=== PATIENT | male | born 1940 | race Caucasian/White ===

== ENCOUNTER 2016-11-06 12:11 | Inpatient (IN) | payer MEDICARE, OTHER ==
[2016-11-06] MEDS ORDERED: Sodium Chloride 0.9% 1,000 ML IV ONE (12:56)
--- NOTE | 2016-11-06 14:30 | CR ---
EXAM DATE: 11/06/16 PATIENT'S AGE: 76 Patient: APARNA KRISHNAN Facility: [place], [place] Site . Site : 1940 Study: XRay Chest [id number] 1:34:23 PM Ordering Physician: Tremaine Obrien Final Report: HISTORY: Fluid on lungs. FINDINGS: PA and lateral chest radiographs are compared with 26 August 2016. Left subclavian transvenous pacer is in place in unchanged position. Right-sided Port -A-Cath is in place. The catheter is tortuous extending above the left clavicle with the tip in the SVC unchanged from prior exam. The cardiac silhouette is stable. There is a small left pleural effusion and a moderately large right pleural effusion increased from prior exam. There is persistent linear density seen in the left base and adjacent to the right pleural effusion. Degenerative changes are seen within the distal thoracic spine. IMPRESSION: 1. Increasing moderately large right pleural effusion and persistent adjacent atelectatic lung. 2. Stable small left pleural effusion and atelectatic lung. Dictated by Florecita Glez MD @ 11/06/2016 2:04:16 PM Dictated by: Florecita Gelz MD @ 11/06/2016 14:04:36 (Electronic Signature) Report Signed by Proxy. CUONG
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
[2016-11-06] MEDS ORDERED: Ondansetron 4 MG/2 ML SDV IVPUSH PRN (16:17)
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
[2016-11-06] MEDS ORDERED: Metoprolol Tartrate 25 MG Tab PO ONE (18:13)
[2016-11-06] MEDS: Metoprolol Tartrate 25 MG Tab PO SCH (21:03)
[2016-11-07] MEDS ORDERED: Sodium Chloride 0.9% 1,000 ML IV ONE (00:50)
[2016-11-07 05:47] LABS: CHLORIDE,CL 105 mmol/L (98-110); SODIUM,NA 138 mmol/L (136-146)
[2016-11-07] MEDS: Omeprazole 20 MG Cap.CR PO SCH (08:03)
[2016-11-07] MEDS: Metoprolol Tartrate 25 MG Tab PO SCH ×2 (08:25→21:46)
--- NOTE | 2016-11-07 17:17 | PCM.PN ---
Addendum entered and electronically signed by Saurabh Sprague MD 11/07/16 17:19: Original Note: - General Info Date of Service: 11/07/16 Admission Dx/Problem (Free Text): Admission Diagnosis/Problem Admission Diagnosis/Problem Hypoxia Subjective Update: Patient comfortable. Has no complaints or concerns. Functional Status: Reports: Pain Controlled - Review of Systems General: Reports: No Symptoms HEENT: Reports: No Symptoms Pulmonary: Reports: No Symptoms Cardiovascular: Reports: No Symptoms Gastrointestinal: Reports: No Symptoms Genitourinary: Reports: No Symptoms Musculoskeletal: Reports: No Symptoms Skin: Reports: No Symptoms Neurological: Reports: No Symptoms Psychiatric: Reports: No Symptoms - Patient Data Vitals - Most Recent: Last Vital Signs Temp 36.6 C 11/07/16 16:00 Pulse 85 11/07/16 16:00 Resp 22 H 11/07/16 16:00 BP 97/64 11/07/16 16:00 Pulse Ox 92 L 11/07/16 16:00 Weight - Most Recent: 61.235 kg I&O - Last 24 Hours: Intake & Output 11/07/16 11/07/16 11/07/16 06:59 14:59 22:59 Intake Total 1318 300 Output Total 300 270 Balance 1018 30 Lab Results Last 24 Hours: Laboratory Results - last 24 hr 11/07/16 11/07/16 11/07/16 Range/Units 01:00 05:10 05:10 WBC 2.99 L (4.0-11.0) K/uL RBC 3.11 L (4.50-5.90) M/uL Hgb 10.5 L (13.0-17.0) g/dL Hct 31.0 L (38.0-50.0) % MCV 99.7 H (80.0-98.0) fL MCH 33.8 H (27.0-32.0) pg MCHC 33.9 (31.0-37.0) g/dL RDW Std Deviation 54.5 (28.0-62.0) fl RDW Coeff of Amber 15 (11.0-15.0) % Plt Count 69 L (150-400) K/uL MPV 11.20 (7.40-12.00) fL Neut % (Auto) 43.1 L (48.0-80.0) % Lymph % (Auto) 41.8 H (16.0-40.0) % [place] % (Auto) 12.4 (0.0-15.0) % Eos % (Auto) 2.0 (0.0-7.0) % Baso % (Auto) 0.7 (0.0-1.5) % Neut # (Auto) 1.3 L (1.4-5.7) K/uL Lymph # (Auto) 1.3 (0.6-2.4) K/uL [place] # (Auto) 0.4 (0.0-0.8) K/uL Eos # (Auto) 0.1 (0.0-0.7) K/uL Baso # (Auto) 0.0 (0.0-0.1) K/uL Nucleated RBC % 0.0 /100WBC Nucleated RBCs # 0 K/uL INR 2.37 H (0.86-1.11) Lactate 1.2 (0.20-2.00) mmol/L Sodium (136-146) mmol/L Potassium (3.5-5.1) mmol/L Chloride (98-110) mmol/L Carbon Dioxide (21-31) mmol/L BUN (6.0-23.0) mg/dL Creatinine (0.6-1.5) mg/dL Est Cr Clr Drug Dosing mL/min Estimated GFR (MDRD) ml/min Glucose (60-110) mg/dL Calcium (8.8-10.8) mg/dL 11/07/16 Range/Units 05:10 WBC (4.0-11.0) K/uL RBC (4.50-5.90) M/uL Hgb (13.0-17.0) g/dL Hct (38.0-50.0) % MCV (80.0-98.0) fL MCH (27.0-32.0) pg MCHC (31.0-37.0) g/dL RDW Std Deviation (28.0-62.0) fl RDW Coeff of Amber (11.0-15.0) % Plt Count (150-400) K/uL MPV (7.40-12.00) fL Neut % (Auto) (48.0-80.0) % Lymph % (Auto) (16.0-40.0) % [place] % (Auto) (0.0-15.0) % Eos % (Auto) (0.0-7.0) % Baso % (Auto) (0.0-1.5) % Neut # (Auto) (1.4-5.7) K/uL Lymph # (Auto) (0.6-2.4) K/uL [place] # (Auto) (0.0-0.8) K/uL Eos # (Auto) (0.0-0.7) K/uL Baso # (Auto) (0.0-0.1) K/uL Nucleated RBC % /100WBC Nucleated RBCs # K/uL INR (0.86-1.11) Lactate (0.20-2.00) mmol/L Sodium 138 (136-146) mmol/L Potassium 4.2 (3.5-5.1) mmol/L Chloride 105 (98-110) mmol/L Carbon Dioxide 28 (21-31) mmol/L BUN 11 (6.0-23.0) mg/dL Creatinine 0.6 (0.6-1.5) mg/dL Est Cr Clr Drug Dosing 92.14 mL/min Estimated GFR (MDRD) > 60.0 ml/min Glucose 67 (60-110) mg/dL Calcium 7.6 L (8.8-10.8) mg/dL Med Orders - Current: Current Medications Metoprolol Tartrate (Lopressor) 25 mg PO Q12HR [facility] Last Admin: 11/07/16 08:25 Dose: Not Given Omeprazole (Omeprazole) 40 mg PO ACBREAKFAST [facility] Last Admin: 11/07/16 08:03 Dose: Not Given Ondansetron HCl (Zofran) 4 mg IVPUSH Q4H PRN PRN Reason: Nausea Discontinued Medications Sodium Chloride (Normal Saline) 1,000 mls @ 999 mls/hr IV .Bolus ONE Stop: 11/06/16 13:56 Last Admin: 11/06/16 13:41 Dose: 999 mls/hr Sodium Chloride (Normal Saline) 1,000 mls @ 999 mls/hr IV .BOLUS ONE Stop: 11/07/16 01:50 Last Admin: 11/07/16 01:28 Dose: 999 mls/hr Phytonadione (Aquamephyton) 2.5 mg PO ONETIME ONE Stop: 11/06/16 16:01 Last Admin: 11/06/16 18:07 Dose: Not Given Phytonadione (Aquamephyton) 2.5 mg PO ONETIME ONE Stop: 11/06/16 16:01 Last Admin: 11/06/16 18:07 Dose: Not Given Phytonadione (Aquamephyton) 5 mg PO ONETIME ONE Stop: 11/06/16 16:31 Last Admin: 11/06/16 17:06 Dose: 5 mg - Exam General: Alert, Oriented, Cooperative, No Acute Distress HEENT: Pupils Equal, Pupils Reactive Lungs: Decreased Breath Sounds (Right side diminished ) Cardiovascular: Regular Rate, Irregular Rhythm GI/Abdominal Exam: Non-Tender Extremities: Normal Capillary Refill Skin: Intact - Problem List Review Problem List Initiated/Reviewed/Updated: Yes - Plan Plan:: 76 yo male with pmh of gastric cancer who presents with hypoxia, right pleural effusion, lung nodule, and supratheraputic INR Supratherputic INR: INR improving. continue to hold coumadin. give malachi additional vitamin K 2.5 Pleural effusion: when INR is at safe levels will get diagnostic and theraputic INR lung nodule: will refer for biopsy. Hypoxia: improved, currently on RA Atrial fibrillation: continue metoprolol Thrombocytopenia: Order platelets 1 units so available on standby
[2016-11-07] MEDS ORDERED: Phytonadione 5 MG Tab PO ONE (17:29)
[2016-11-08 06:40] LABS: CHLORIDE,CL 105 mmol/L (98-110); SODIUM,NA 138 mmol/L (136-146)
[2016-11-08] MEDS: Omeprazole 20 MG Cap.CR PO SCH (07:55)
[2016-11-08] MEDS: Metoprolol Tartrate 25 MG Tab PO SCH ×2 (09:17→21:24)
--- NOTE | 2016-11-08 13:20 | PCM.PN ---
- General Info Date of Service: 11/08/16 Admission Dx/Problem (Free Text): Admission Diagnosis/Problem Admission Diagnosis/Problem Hypoxia Subjective Update: Patient comfortable. Has no complaints or concerns. Functional Status: Reports: Pain Controlled, Tolerating Diet - Review of Systems General: Reports: No Symptoms HEENT: Reports: No Symptoms Pulmonary: Reports: No Symptoms Cardiovascular: Reports: No Symptoms Gastrointestinal: Reports: No Symptoms Genitourinary: Reports: No Symptoms Musculoskeletal: Reports: No Symptoms Skin: Reports: No Symptoms Neurological: Reports: No Symptoms Psychiatric: Reports: No Symptoms - Patient Data Vitals - Most Recent: Last Vital Signs Temp 36.9 C 11/08/16 12:00 Pulse 119 H 11/08/16 12:00 Resp 16 11/08/16 12:00 BP 100/62 11/08/16 12:00 Pulse Ox 93 L 11/08/16 12:00 Weight - Most Recent: 61.235 kg I&O - Last 24 Hours: Intake & Output 11/07/16 11/08/16 11/08/16 22:59 06:59 14:59 Intake Total 300 50 Output Total 270 450 Balance 30 -400 Lab Results Last 24 Hours: Laboratory Results - last 24 hr 11/08/16 11/08/16 11/08/16 Range/Units 05:30 05:30 05:30 WBC 3.94 L (4.0-11.0) K/uL RBC 3.18 L (4.50-5.90) M/uL Hgb 10.9 L (13.0-17.0) g/dL Hct 31.9 L (38.0-50.0) % MCV 100.3 H (80.0-98.0) fL MCH 34.3 H (27.0-32.0) pg MCHC 34.2 (31.0-37.0) g/dL RDW Std Deviation 54.7 (28.0-62.0) fl RDW Coeff of Amber 15 (11.0-15.0) % Plt Count 76 L (150-400) K/uL MPV 11.60 (7.40-12.00) fL Neut % (Auto) 49.8 (48.0-80.0) % Lymph % (Auto) 36.5 (16.0-40.0) % [place] % (Auto) 11.4 (0.0-15.0) % Eos % (Auto) 1.8 (0.0-7.0) % Baso % (Auto) 0.5 (0.0-1.5) % Neut # (Auto) 2.0 (1.4-5.7) K/uL Lymph # (Auto) 1.4 (0.6-2.4) K/uL [place] # (Auto) 0.5 (0.0-0.8) K/uL Eos # (Auto) 0.1 (0.0-0.7) K/uL Baso # (Auto) 0.0 (0.0-0.1) K/uL Nucleated RBC % 0.0 /100WBC Nucleated RBCs # 0 K/uL INR 1.44 H (0.86-1.11) Sodium 138 (136-146) mmol/L Potassium 4.4 (3.5-5.1) mmol/L Chloride 105 (98-110) mmol/L Carbon Dioxide 28 (21-31) mmol/L BUN 9 (6.0-23.0) mg/dL Creatinine 0.7 (0.6-1.5) mg/dL Est Cr Clr Drug Dosing 78.97 mL/min Estimated GFR (MDRD) > 60.0 ml/min Glucose 65 (60-110) mg/dL Calcium 7.9 L (8.8-10.8) mg/dL Med Orders - Current: Current Medications Metoprolol Tartrate (Lopressor) 25 mg PO Q12HR [facility] Last Admin: 11/08/16 09:17 Dose: Not Given Omeprazole (Omeprazole) 40 mg PO ACBREAKFAST [facility] Last Admin: 11/08/16 07:55 Dose: 40 mg Ondansetron HCl (Zofran) 4 mg IVPUSH Q4H PRN PRN Reason: Nausea Discontinued Medications Sodium Chloride (Normal Saline) 1,000 mls @ 999 mls/hr IV .Bolus ONE Stop: 11/06/16 13:56 Last Admin: 11/06/16 13:41 Dose: 999 mls/hr Sodium Chloride (Normal Saline) 1,000 mls @ 999 mls/hr IV .BOLUS ONE Stop: 11/07/16 01:50 Last Admin: 11/07/16 01:28 Dose: 999 mls/hr Phytonadione (Aquamephyton) 2.5 mg PO ONETIME ONE Stop: 11/06/16 16:01 Last Admin: 11/06/16 18:07 Dose: Not Given Phytonadione (Aquamephyton) 2.5 mg PO ONETIME ONE Stop: 11/06/16 16:01 Last Admin: 11/06/16 18:07 Dose: Not Given Phytonadione (Aquamephyton) 5 mg PO ONETIME ONE Stop: 11/06/16 16:31 Last Admin: 11/06/16 17:06 Dose: 5 mg Phytonadione (Mephyton) 2.5 mg PO ONETIME ONE Stop: 11/07/16 17:30 Last Admin: 11/07/16 17:43 Dose: Not Given Phytonadione (Aquamephyton) 2.5 mg PO ONETIME ONE Stop: 11/07/16 17:46 Last Admin: 11/07/16 18:06 Dose: Not Given Phytonadione (Aquamephyton) 2.5 mg PO ONETIME ONE Stop: 11/07/16 18:01 Last Admin: 11/07/16 18:07 Dose: 2.5 mg - Exam General: Alert, Oriented, Cooperative, No Acute Distress HEENT: Pupils Equal, Pupils Reactive Lungs: Decreased Breath Sounds (right middle and lower lobes ) Cardiovascular: Regular Rate Back Exam: Normal Inspection Extremities: Normal Inspection Skin: Warm, Dry, Intact Neurological: No New Focal Deficit - Problem List Review Problem List Initiated/Reviewed/Updated: Yes - Plan Plan:: 76 yo male with pmh of gastric cancer admitted hypoxia, right pleural effusion, lung nodule, and supratheraputic INR Supratherputic INR: INR improving. Currently 1.4. Pleural effusion: plan for thoracentesis today lung nodule: will refer for biopsy. Hypoxia: improved, currently on RA Atrial fibrillation: continue metoprolol Thrombocytopenia: Platelets improving, 76k today
[2016-11-08 15:25] LABS: CHLORIDE,CL 104 mmol/L (98-110); SODIUM,NA 137 mmol/L (136-146)
--- NOTE | 2016-11-08 15:32 | PCM.PRNOTE ---
- Free Text/Narrative Note: Diagnostic and therapeutic thoracentesis Indication: large right pleural effusion A time out was completed verifying correct patient, procedure and site. Patient was prepped and draped in a sterile manner. Infiltration level was confirmed by ultrasound. 1% lidocane was use to anesthetize the skin. A finder needle was use to locate depth to reach pleural space. A thoracentesis catheter was then threaded. The first catheter became kinked between the skin and rib. A second catheter was threaded without difficulty. The patient had 1500ml of straw colored fluid removed. A post-procedure chest x-ray was ordered and fluid was sent for studies and cytology. Patient tolerated the procedure well with improvement in breathing afterwords.
[2016-11-08] MEDS ORDERED: Metoprolol Tartrate 50 MG Tab PO ONE (18:12)
[2016-11-08] MEDS ORDERED: Metoprolol Tartrate 25 MG Tab PO ONE (18:28)
[2016-11-09 06:36] LABS: CHLORIDE,CL 103 mmol/L (98-110); SODIUM,NA 137 mmol/L (136-146)
[2016-11-09] MEDS: Omeprazole 20 MG Cap.CR PO SCH (06:39)
--- NOTE | 2016-11-09 10:14 | PCM.DCSUM1 ---
Discharge Summary - Hospital Course Free Text/Narrative:: 76 year old male with history of Gastric CA and AF admitted for Dyspnea, supratherapeutic INR & Thrombocytopenia . XR revealed large right sided pulmonary edema. He sees Dr. Blackwell as his [employer] who recommended Thoracentesis with pleural fluid analysis to r/o malignant effusion. He was given Vitamin K which improved his Due to unavailability of radiology for at least 5 days, we discussed the case with Dr. Vazquez from general surgery. She informed us that due to patients cancer she felt the procedure was too unsafe even if INR is corrected and platelet count improves due to hypercoaguable state of patient, therefore she recommended waiting for radiology to become available. Patient was in no distress and was resting comfortably however due large pleural effusion there was concern of hypoxia if discharged. Therefore we monitored his INR and platelet count. Following day patient Thoracentesis was performed by hospitalist on staff. 1.5 litres of pleural fluid was obtained and sent for analysis along with CMP and serum LDH for comparison. CXR showed no pneumothorax. Patients breathing improved drastically. He was monitored overnight and no complications occurred. Patient was still having hypoxia therefore he was sent home on home O2. Based on lights criteria he barely makes the cutoff for exudative effusion with Pleural Protein to Serum Protein ratio of 0.56. He was discharged home on 11/09. F/U appointment was scheduled for 11/[address] Mcgraw. His Coumadin was DC prior to discharge incase patient needs to have biopsy performed. This may be arranged by Dr. Mcgraw and/or Dr. Blackwell. - Discharge Data Discharge Date: 11/09/16 Discharge Disposition: Home, Self-Care 01 Condition: Good - Patient Instructions Diet: Heart Healthy Diet Activity: As Tolerated Notify Provider of: Fever, Increased Pain, Swelling and Redness, Drainage, Nausea and/or Vomiting - Discharge Plan Home Medications: Home Meds Magnesium Oxide [Magnesium] 250 mg PO DAILY 10/27/13 [History] Ferrous Sulfate 324 mg PO BID 11/20/14 [History] Metoprolol Tartrate 25 mg BID 11/06/16 [History] Patient Handouts: Thoracentesis, Care After, Oxygen Use at Home, Pleural Effusion Referrals: Aryan Mcgraw MD [Primary Care Provider] - 11/10/16 2:00 pm - Patient Data Vitals - Most Recent: Last Vital Signs Temp 36.6 C 11/09/16 07:38 Pulse 83 11/09/16 07:38 Resp 16 11/09/16 07:38 BP 93/57 L 11/09/16 07:38 Pulse Ox 94 L 11/09/16 07:38 Weight - Most Recent: 61.235 kg I&O - Last 24 hours: Intake & Output 11/08/16 11/09/16 11/09/16 22:59 06:59 14:59 Intake Total 240 460 Output Total 150 200 Balance 90 260 Lab Results - Last 24 hrs: Laboratory Results - last 24 hr 11/08/16 11/08/16 11/08/16 Range/Units 14:30 14:30 14:30 WBC (4.0-11.0) K/uL RBC (4.50-5.90) M/uL Hgb (13.0-17.0) g/dL Hct (38.0-50.0) % MCV (80.0-98.0) fL MCH (27.0-32.0) pg MCHC (31.0-37.0) g/dL RDW Std Deviation (28.0-62.0) fl RDW Coeff of Amber (11.0-15.0) % Plt Count (150-400) K/uL MPV (7.40-12.00) fL Neut % (Auto) (48.0-80.0) % Lymph % (Auto) (16.0-40.0) % [place] % (Auto) (0.0-15.0) % Eos % (Auto) (0.0-7.0) % Baso % (Auto) (0.0-1.5) % Neut # (Auto) (1.4-5.7) K/uL Lymph # (Auto) (0.6-2.4) K/uL [place] # (Auto) (0.0-0.8) K/uL Eos # (Auto) (0.0-0.7) K/uL Baso # (Auto) (0.0-0.1) K/uL Nucleated RBC % /100WBC Nucleated RBCs # K/uL Sodium (136-146) mmol/L Potassium (3.5-5.1) mmol/L Chloride (98-110) mmol/L Carbon Dioxide (21-31) mmol/L BUN (6.0-23.0) mg/dL Creatinine (0.6-1.5) mg/dL Est Cr Clr Drug Dosing mL/min Estimated GFR (MDRD) ml/min Glucose (60-110) mg/dL Calcium (8.8-10.8) mg/dL Total Bilirubin (0.1-1.5) mg/dL AST (5-40) IU/L ALT (8-54) IU/L Alkaline Phosphatase (40-150) Lactate Dehydrogenase (125-220) IU/L Total Protein (6.0-8.0) g/dL Albumin (3.4-4.8) g/dL Globulin (2.0-3.5) g/dL Albumin/Globulin Ratio (1.3-2.8) Fluid Type PL PL PL Fluid Color DARK YELLOW Fluid Appearance HAZY Fluid pH 7.5 Fluid WBC 0.16 K/uL Fluid RBC 0.01 M/uL Fluid Mononuclear Cell 85.4 % Fl Polymorphonucl Cell 14.6 % Fluid Glucose 90 mg/dL Fluid Total Protein 2.8 g/dL Fluid Albumin 1.7 g/dL Fluid LDH 105 U/L Fluid Amylase 140 U/L Fluid Cholesterol 39.0 g/dL Fluid Triglycerides 19 mg/dL 11/08/16 11/09/16 11/09/16 Range/Units 14:37 05:24 05:24 WBC 5.80 (4.0-11.0) K/uL RBC 3.51 L (4.50-5.90) M/uL Hgb 12.1 L (13.0-17.0) g/dL Hct 35.2 L (38.0-50.0) % MCV 100.3 H (80.0-98.0) fL MCH 34.5 H (27.0-32.0) pg MCHC 34.4 (31.0-37.0) g/dL RDW Std Deviation 54.8 (28.0-62.0) fl RDW Coeff of Amber 15 (11.0-15.0) % Plt Count 83 L (150-400) K/uL MPV 11.50 (7.40-12.00) fL Neut % (Auto) 56.9 (48.0-80.0) % Lymph % (Auto) 29.8 (16.0-40.0) % [place] % (Auto) 12.1 (0.0-15.0) % Eos % (Auto) 1.0 (0.0-7.0) % Baso % (Auto) 0.2 (0.0-1.5) % Neut # (Auto) 3.3 (1.4-5.7) K/uL Lymph # (Auto) 1.7 (0.6-2.4) K/uL [place] # (Auto) 0.7 (0.0-0.8) K/uL Eos # (Auto) 0.1 (0.0-0.7) K/uL Baso # (Auto) 0.0 (0.0-0.1) K/uL Nucleated RBC % 0.0 /100WBC Nucleated RBCs # 0 K/uL Sodium 137 137 (136-146) mmol/L Potassium 3.9 3.9 (3.5-5.1) mmol/L Chloride 104 103 (98-110) mmol/L Carbon Dioxide 26 28 (21-31) mmol/L BUN 9 8 (6.0-23.0) mg/dL Creatinine 0.7 0.7 (0.6-1.5) mg/dL Est Cr Clr Drug Dosing 78.97 78.97 mL/min Estimated GFR (MDRD) > 60.0 > 60.0 ml/min Glucose 89 82 (60-110) mg/dL Calcium 8.1 L 8.1 L (8.8-10.8) mg/dL Total Bilirubin 1.2 1.3 (0.1-1.5) mg/dL AST 37 30 (5-40) IU/L ALT 14 12 (8-54) IU/L Alkaline Phosphatase 135 121 (40-150) Lactate Dehydrogenase 224 H (125-220) IU/L Total Protein 5.5 L 5.1 L (6.0-8.0) g/dL Albumin 3.0 L 2.7 L (3.4-4.8) g/dL Globulin 2.5 2.4 (2.0-3.5) g/dL Albumin/Globulin Ratio 1.2 L 1.1 L (1.3-2.8) Fluid Type Fluid Color Fluid Appearance Fluid pH Fluid WBC K/uL Fluid RBC M/uL Fluid Mononuclear Cell % Fl Polymorphonucl Cell % Fluid Glucose mg/dL Fluid Total Protein g/dL Fluid Albumin g/dL Fluid LDH U/L Fluid Amylase U/L Fluid Cholesterol g/dL Fluid Triglycerides mg/dL HANS Results - Last 24 hrs: Microbiology 11/08/16 14:30 Gram Stain - Preliminary Pleural Fluid - Pleural Cavity, Right Body Fluid Culture - Preliminary NO GROWTH AFTER 1 DAY Med Orders - Current: Current Medications Metoprolol Tartrate (Lopressor) 25 mg PO Q12HR [facility] Last Admin: 11/08/16 21:24 Dose: Not Given Omeprazole (Omeprazole) 40 mg PO ACBREAKFAST [facility] Last Admin: 11/09/16 06:39 Dose: 40 mg Ondansetron HCl (Zofran) 4 mg IVPUSH Q4H PRN PRN Reason: Nausea Discontinued Medications Sodium Chloride (Normal Saline) 1,000 mls @ 999 mls/hr IV .Bolus ONE Stop: 11/06/16 13:56 Last Admin: 11/06/16 13:41 Dose: 999 mls/hr Sodium Chloride (Normal Saline) 1,000 mls @ 999 mls/hr IV .BOLUS ONE Stop: 11/07/16 01:50 Last Admin: 11/07/16 01:28 Dose: 999 mls/hr Metoprolol Tartrate (Lopressor) 25 mg PO Q12HR [facility] Last Admin: 11/08/16 09:17 Dose: Not Given Metoprolol Tartrate (Lopressor) 50 mg PO ONETIME ONE Stop: 11/08/16 18:13 Last Admin: 11/08/16 18:34 Dose: Not Given Metoprolol Tartrate (Lopressor) 25 mg PO ONETIME ONE Stop: 11/06/16 18:14 Metoprolol Tartrate (Lopressor) 25 mg PO ONETIME ONE Stop: 11/08/16 18:29 Last Admin: 11/08/16 18:33 Dose: 25 mg Phytonadione (Aquamephyton) 2.5 mg PO ONETIME ONE Stop: 11/06/16 16:01 Last Admin: 11/06/16 18:07 Dose: Not Given Phytonadione (Aquamephyton) 2.5 mg PO ONETIME ONE Stop: 11/06/16 16:01 Last Admin: 11/06/16 18:07 Dose: Not Given Phytonadione (Aquamephyton) 5 mg PO ONETIME ONE Stop: 11/06/16 16:31 Last Admin: 11/06/16 17:06 Dose: 5 mg Phytonadione (Mephyton) 2.5 mg PO ONETIME ONE Stop: 11/07/16 17:30 Last Admin: 11/07/16 17:43 Dose: Not Given Phytonadione (Aquamephyton) 2.5 mg PO ONETIME ONE Stop: 11/07/16 17:46 Last Admin: 11/07/16 18:06 Dose: Not Given Phytonadione (Aquamephyton) 2.5 mg PO ONETIME ONE Stop: 11/07/16 18:01 Last Admin: 11/07/16 18:07 Dose: 2.5 mg *Q Meaningful Use (DIS) - VTE *Q VTE Criteria *Q: - Stroke *Q Stroke Criteria *Q: - AMI *Q AMI Criteria *Q:
[2016-11-09 10:42] VITALS: BP 90/65
[2016-11-09] MEDS: Metoprolol Tartrate 25 MG Tab PO SCH (11:00)
--- NOTE | 2016-11-10 13:48 | CR ---
EXAM DATE: 11/06/16 PATIENT'S AGE: 76 Patient: APARNA KRISHNAN Facility: [place], [place] Site . Site : 1940 Study: XRay Chest [id number]/30/2017 2:35:03 PM Ordering Physician: Cruzito Peres Final Report: INDICATION: Post thoracentesis. Technique chest one-view. Comparison: 11/06. Impression: Decreased volume right effusion. No pneumothorax. Stable small left effusion. Stable heart size with pacemaker. Port-A-Cath. Stable position of central venous line in the right innominate vein. Dictated by Dakota Donnelly MD @ Nov 08 2016 3:06PM (Electronic Signature) Report Signed by Proxy. CUONG
== END 2016-11-09 13:20 | disposition home or self-care (01) | DRG 188 ==
LOC: MW.ED 12:11 → MW.MS 14:59
PROVIDERS: ADMIT Internal Medicine; ATTEND Internal Medicine
PROC: 0W993ZX Drainage of Right Pleural Cavity, Percutaneous Approach, Diagnostic (ICD-10-PCS; principal; 2016-11-08)
DX: J90 Pleural effusion, not elsewhere classified (principal); R09.02 Hypoxemia; R91.1 Solitary pulmonary nodule; I48.91 Unspecified atrial fibrillation; R79.1 Abnormal coagulation profile; D69.6 Thrombocytopenia, unspecified; Z79.899 Other long term (current) drug therapy; J44.9 Chronic obstructive pulmonary disease, unspecified; Z85.028 Personal history of other malignant neoplasm of stomach; Z79.01 Long term (current) use of anticoagulants; Z87.891 Personal history of nicotine dependence; Z95.0 Presence of cardiac pacemaker
CPT/HCPCS: 36415; 71020; 84484; 85610; 93005; 96360; 96361; 99285; J7040; 71010; 71010-26; 80048; 80053; 82150; 82945; 83605; 83615; 83986; 84157; 84478; 85025; 87070; 87205; 88104; 88305; 89050; 99283; A9270-GY; J3430

== ENCOUNTER 2017-01-22 05:05 | Emergency (ER) | payer MEDICARE, OTHER ==
[2017-01-22] MEDS ORDERED: Acetaminophen 325 MG Tab PO ONE (05:14)
[2017-01-22] MEDS ORDERED: Sodium Chloride 0.9% 1,000 ML IV SCH (05:15)
[2017-01-22] MEDS ORDERED: 50% Dextrose in Water 50 ML Syringe ONE (05:20)
[2017-01-22] MEDS ORDERED: 50% Dextrose in Water 50 ML Syringe IVPUSH ONE (05:24)
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
[2017-01-22] MEDS ORDERED: Piperacillin/Tazobactam 3.375 GM in Sodium Chloride 0.9% 50 ML IV ONE ×2 (05:42→06:28)
[2017-01-22] MEDS ORDERED: Sodium Chloride 0.9% 10 ML Syringe FLUSH PRN (05:43)
[2017-01-22] MEDS ORDERED: Sodium Chloride 0.9% 2.5 ML Syringe FLUSH PRN (05:43)
[2017-01-22] MEDS ORDERED: cefTRIAXone 1 GM in Premix Bag 1 BAG IV ONE (05:51)
[2017-01-22 06:09] LABS: CHLORIDE,CL 102 mmol/L (98-110); SODIUM,NA 133 mmol/L (136-146)
[2017-01-22] MEDS ORDERED: Sodium Chloride 0.9% 1,000 ML IV ONE ×2 (08:48→09:19)
--- NOTE | 2017-01-22 09:07 | CR ---
EXAM DATE: 01/22/17 PATIENT'S AGE: 76 Patient: APARNA KRISHNAN Facility: [place], [place] Site . Site : 1940 Study: XRay Chest [id number]/14/2017 6:54:07 AM Ordering Physician: Doctor Caceres Final Report: INDICATION: Weakness HISTORY: Weakness. COMPARISON: 11/08/2016. TECHNIQUE: Chest 1 view upright. FINDINGS: Small left pleural effusion is similar to previous. Small right pleural effusion has decreased when compared with 11/08/2016. There is no pneumothorax identified. Right-sided Port-A-Cath, stable in position. Left subclavian transvenous pacemaker. Device leads are continuous. Paucity of abdominal bowel gas. Stable, chronic appearing left posterior rib fracture deformities. IMPRESSION: Small, bilateral pleural effusions, decreased on the right when compared with . Dictated by Tang Liang MD @ 01/22/2017 7:22:31 AM Dictated by: Tang Liang MD @ 01/22/2017 07:22:47 (Electronic Signature) Report Signed by Proxy. [facility]
[2017-01-22] MEDS ORDERED: Phenylephrine 10 MG in Sodium Chloride 0.9% 99 ML IV STA (09:08)
--- NOTE | 2017-01-22 09:08 | CT ---
EXAM DATE: 01/22/17 PATIENT'S AGE: 76 Patient: APARNA KRISHNAN Facility: [place], [place] Site . Site : 1940 Study: CT Head [id number]/[id number] 6:54:50 AM Ordering Physician: Doctor Caceres Final Report: INDICATION: Weakness HISTORY: Weakness. COMPARISON: CT of the brain without contrast 03/18/2015. TECHNIQUE: CT of the brain without contrast. Coronal/sagittal reconstruction images. FINDINGS: There is diffuse cerebral and cerebellar volume loss, which is similar to previous. There is no hyperdense MCA sign. There is no acute intracranial hemorrhage. There is no shift of midline structures. There is no mass effect. The basilar cisterns are patent. There are no abnormal extra-axial fluid collections. The thalamic nuclei, lentiform nuclei, caudate nuclei, midbrain, mai, and cerebellum show no acute findings. Mastoid air cells of both temporal bones are clear. Mild mucosal thickening in the paranasal sinuses. This is seen best in the ethmoidal air cells on image 5, series 202. The bones of the skullbase and calvaria are intact. IMPRESSION: 1. There is no acute intracranial hemorrhage, shift of midline structures, or mass effect. 2. No hyperdense MCA sign. 3. Examination is similar to the study performed 03/18/2015. Dictated by Tang Liang MD @ 01/22/2017 7:27:43 AM Dictated by: Tang Liang MD @ 01/22/2017 07:27:52 (Electronic Signature) Report Signed by Proxy. [facility]
[2017-01-22 10:41] VITALS: BP 76/53
== END 2017-01-22 10:15 ==
LOC: MW.ED 05:05
DX: A41.9 Sepsis, unspecified organism (principal); D61.818 Other pancytopenia; I95.9 Hypotension, unspecified; D72.819 Decreased white blood cell count, unspecified; D69.6 Thrombocytopenia, unspecified; D64.9 Anemia, unspecified; C16.9 Malignant neoplasm of stomach, unspecified; Z79.01 Long term (current) use of anticoagulants; Z87.891 Personal history of nicotine dependence; Z79.899 Other long term (current) drug therapy
CPT/HCPCS: 36415; 36430; 70450; 71020; 80053; 81001; 82962; 83605; 85025; 85610; 87040; 87086; 93005; 96360; 96361; 96365; 96367; 96375; 99285; A9270; J0696; J2543; J3370; J7040; J7050; J7060; P9016; 87077; 87088; 87186